=== PATIENT | female | born 1950 | race Caucasian/White ===

== ENCOUNTER → 2016-11-10 | Outpatient (CLI) | payer OTHER ==
[2016-11-10 17:21] LABS: BASOPHILS # (AUTO) 0.03 10*3/UL; BASOPHILS % (AUTO) 0.5 % (0-1); EOSINOPHILS % (AUTO) 5.3 % (0-8); HEMATOCRIT 37.6 % (37.0-47.0); HEMOGLOBIN 12.3 g/dL (12.0-16.0); IMM GRAN % (AUTO) 0.2 % (0-5); IMM GRAN# (AUTO) 0.01 10*3/UL; LYMPHOCYTES # (AUTO) 1.29 10*3/uL; LYMPHOCYTES % (AUTO) 23.5 % (10-50); MEAN CORPUSCULAR HEMOGLOBIN 29.9 PG (27-31); MEAN CORPUSCULAR HGB CONC 32.7 g/dL (33-37); MEAN PLATELET VOLUME 10.4 FL (7.4-12.2); MONOCYTES % (AUTO) 10.9 % (5-15); NEUTROPHILS # (AUTO) 3.28 10*3/UL; NEUTROPHILS % (AUTO) 59.6 % (50-80); RDW COEFFICIENT OF VARIATION 13.1 % (11.5-14.5); RED BLOOD COUNT 4.12 10^6/uL (4.20-5.40)
[2016-11-10 17:23] LABS: PLATELET MORPHOLOGY COMMENT NORMAL MORPHOLOGY (NORM)
== END ==
LOC: LAB 13:41
PROVIDERS: ATTEND Physician Assistant Medical
DX: M32.8 Other forms of systemic lupus erythematosus (principal)
CPT/HCPCS: 84550; 85025

== ENCOUNTER → 2017-03-02 | Outpatient (CLI) | payer OTHER ==
[2017-03-03 14:50] LABS: BASOPHILS # (AUTO) 0.02 10*3/UL; BASOPHILS % (AUTO) 0.4 % (0-1); EOSINOPHILS # (AUTO) 0.07 10*3/UL; EOSINOPHILS % (AUTO) 1.5 % (0-8); HEMATOCRIT 38.2 % (37.0-47.0); HEMOGLOBIN 12.1 g/dL (12.0-16.0); LYMPHOCYTES # (AUTO) 0.75 10*3/uL; MEAN CORPUSCULAR HEMOGLOBIN 29.5 PG (27-31); MEAN CORPUSCULAR HGB CONC 31.7 g/dL (33-37); MEAN CORPUSCULAR VOLUME 93.2 FL (81-99); MONOCYTES % (AUTO) 8.4 % (5-15); NEUTROPHILS # (AUTO) 3.52 10*3/UL; NEUTROPHILS % (AUTO) 73.8 % (50-80)
[2017-03-03 14:57] LABS: BLOOD UREA NITROGEN 9 mg/dL (7-22); CALCIUM 9.4 mg/dL (8.7-10.7); EST GLOMERULAR FILTRATION > 60 (>60 ml/min/1.73m(2)); SERUM ALBUMIN 3.8 g/dL (3.5-4.8)
[2017-03-03 15:26] LABS: PLATELET MORPHOLOGY COMMENT NORMAL MORPHOLOGY (NORM); RBC MORPHOLOGY COMMENT NORMAL MORPHOLOGY (NORM); WBC MORPHOLOGY COMMENT NORMAL MORPHOLOGY (NORM)
== END ==
LOC: LAB 11:31
PROVIDERS: ATTEND Physician Assistant Medical
DX: R17 Unspecified jaundice (principal); M32.8 Other forms of systemic lupus erythematosus; M05.79 Rheumatoid arthritis with rheumatoid factor of multiple sites without organ or systems involvement
CPT/HCPCS: 80053; 85025; 86708